=== PATIENT | male | born 1990 | race Caucasian/White ===

== ENCOUNTER 2024-03-28 08:57 | Emergency (ER) | payer OTHER ==
[~2024-03-28] VITALS: Ht 172.7 cm; Wt 88.9 kg
[2024-03-28] MEDS ORDERED: LIDOCAINE HCL 4% 1 EACH PATCH TD ONE (09:30)
[2024-03-28] MEDS ORDERED: IBUPROFEN 600 MG TAB PO ONE (09:30)
[2024-03-28] MEDS ORDERED: ACETAMINOPHEN 325 MG TAB PO ONE (09:30)
[2024-03-28] MEDS ORDERED: CYCLOBENZAPRINE5 MG PO (10:36)
[2024-03-28] MEDS ORDERED: LIDODERM1 EACH TOP (10:36)
[2024-03-28 10:46] VITALS: BP 114/81
[2024-03-28] MEDS ORDERED: LIDOCAINE PATCH REMOVAL 1 EA TD SCH (21:00)
== END 2024-03-28 10:48 | disposition home or self-care (01) ==
LOC: ED 08:57
DX: S09.90XA Unspecified injury of head, initial encounter (principal); M25.512 Pain in left shoulder; V89.2XXA Person injured in unspecified motor-vehicle accident, traffic, initial encounter
CPT/HCPCS: 70450; 99284-25; A9270